=== PATIENT | male | born 1960 | race Caucasian/White ===

== ENCOUNTER 2018-09-07 16:02 | Inpatient (IN) | payer BC ==
[2018-09-07] MEDS ORDERED: SODIUM CHLORIDE 0.9% 1,000 ML IV STA (16:26)
[2018-09-07 16:52] LABS: Basophils # (A) 0.1 k/uL (0-0.2); Basophils % (A) 1 %; Eosinophils # (A) 0.2 k/uL (0-0.7); Eosinophils % (A) 2 %; HCT 47.2 % (39.0-53.0); HGB 15.4 gm/dL (13.0-17.5); Lymphocytes # (A) 1.2 k/uL (1.0-4.8); Lymphocytes % (A) 13 %; MCH 30.1 pg (25.0-35.0); MCHC 32.5 g/dL (31.0-37.0); MCV 92.5 fL (80.0-100.0); Mean Platelet Volume 7.3; Monocytes # (A) 0.9 k/uL (0-1.0); Monocytes % (A) 9 %; Neutrophils # (A) 6.7 k/uL (1.3-7.7); Neutrophils % (A) 74 %; Platelet Count 265 k/uL (150-450); RBC 5.11 m/uL (4.30-5.90); RDW 14.7 % (11.5-15.5)
[2018-09-07 17:01] LABS: Albumin 4.5 g/dL (3.5-5.0); Calcium 9.4 mg/dL (8.4-10.2); Potassium 4.2 mmol/L (3.5-5.1); Total Bilirubin 6.5 mg/dL (0.2-1.3); Total Protein 7.7 g/dL (6.3-8.2)
[2018-09-07 17:08] LABS: Partial Thromboplastin Time 24.7 sec (22.0-30.0); Prothrombin Time 9.6 sec (9.0-12.0)
[2018-09-07 17:13] LABS: Appearance,Urine Clear (Clear); Bilirubin,Urine 2+ (Negative); Blood,Urine Trace (Negative); Color,Urine Dark Brown; Glucose,Urine (UA) Trace (Negative); Ketones,Urine Negative (Negative); Leukocyte Esterase,Urine Negative (Negative); Mucus,Urine Few /hpf; Nitrite,Urine Negative (Negative); PH, Urine 5.5 (5.0-8.0); Protein,Urine 1+ (Negative); RBC,Urine 1 /hpf (0-5); Specific Gravity,Urine 1.022 (1.001-1.035); Squamous Epithelial Cell,Urine <1 /hpf (0-4); WBC,Urine 2 /hpf (0-5)
--- NOTE | 2018-09-07 17:16 | ED ---
General Adult HPI - General Chief complaint: Recheck/Abnormal Lab/Rx Stated complaint: blood in urine Time Seen by Provider: 09/07/18 16:16 Source: patient, RN notes reviewed Mode of arrival: ambulatory Limitations: no limitations - History of Present Illness Initial comments: 57-year-old male presents emergency Department chief complaint abdominal discomfort, yellowing Of his eyes and gracia-colored stools. Patient states she' s been having issues over the last couple weeks where he has not felt well he's had increased acid reflux and he was recently started on Carafate and omeprazole. Patient had lab work and which have on him to have mildly elevated liver enzymes and referred him to GI though his symptoms worsen the last 2 days when his noticed symptoms of jaundice. Patient's had some nausea no actual vomiting states his stools have been very loose and gee color. Patient states she has no history of history of liver disease denies any recent traveling for countries. No recent fevers chills patient denies any new medications other than omeprazole and Carafate. Patient denies chest pain, shortness breath, headache or dizziness. - Related Data Home Medications Medication Instructions Recorded Confirmed Metoprolol Succinate [Toprol XL] 200 mg PO DAILY 09/07/18 09/07/18 Omeprazole 40 mg PO DAILY 09/07/18 09/07/18 Ranitidine HCl [Zantac] 150 mg PO HS 09/07/18 09/07/18 Sucralfate [Carafate] 1 gm PO HS 09/07/18 09/07/18 Previous Rx's Medication Instructions Recorded Aspirin EC [Ecotrin Low Dose] 162 mg PO DAILY #30 tablet. 09/23/14 Atorvastatin [Lipitor] 40 mg PO DAILY #30 tab 09/23/14 Allergies Allergy/AdvReac Type Severity Reaction Status Date / Time codeine AdvReac Severe Dyspnea Verified 09/07/18 16:50 Review of Systems ROS Statement: Those systems with pertinent positive or pertinent negative responses have been documented in the HPI. ROS Other: All systems not noted in ROS Statement are negative. Past Medical History Past Medical History: GERD/Reflux, Hypertension Additional Past Medical History / Comment(s): GERD History of Any Multi-Drug Resistant Organisms: None Reported Past Surgical History: Coronary Bypass/CABG, Heart Catheterization, Hernia Repair, Orthopedic Surgery Additional Past Surgical History / Comment(s): carpal tunnel, RIGHT KNEE Past Anesthesia/Blood Transfusion Reactions: No Reported Reaction Past Psychological History: No Psychological Hx Reported Smoking Status: Never smoker Past Alcohol Use History: Occasional Past Drug Use History: None Reported - Past Family History Father Family Medical History: Coronary Artery Disease (CAD), Myocardial Infarction ([place] ) Additional Family Medical History / Comment(s): CABG, STARTEDD IN 60'S Mother Family Medical History: Coronary Artery Disease (CAD), Myocardial Infarction ([place] ) Additional Family Medical History / Comment(s): CABG STARTED IN 60'S General Exam Limitations: no limitations General appearance: alert, in no apparent distress Head exam: Present: atraumatic, normocephalic, normal inspection Eye exam: Present: PERRL, EOMI, scleral icterus. Absent: normal appearance, conjunctival injection, periorbital swelling ENT exam: Present: mucous membranes moist, TM's normal bilaterally, normal external ear exam. Absent: normal oropharynx (Yellow in noted under her tongue) Neck exam: Present: normal inspection, full ROM. Absent: tenderness, meningismus, lymphadenopathy Respiratory exam: Present: normal lung sounds bilaterally. Absent: respiratory distress, wheezes, rales, rhonchi, stridor Cardiovascular Exam: Present: regular rate, normal rhythm, normal heart sounds. Absent: systolic murmur, diastolic murmur, rubs, gallop, clicks GI/Abdominal exam: Present: soft, tenderness, normal bowel sounds. Absent: distended, guarding, rebound, rigid Back exam: Absent: CVA tenderness (R), CVA tenderness (L) Neurological exam: Present: alert, oriented X3, CN II-XII intact Skin exam: Present: warm, dry, intact, normal color. Absent: rash Course Vital Signs 09/07/18 16:03 Temperature 98.4 F Pulse Rate 78 Respiratory 18 Rate Blood Pressure 151/94 O2 Sat by Pulse 98 Oximetry Medical Decision Making - Lab Data Result diagrams: 09/07/18 16:39 09/07/18 16:39 Lab Results 09/07/18 09/07/18 09/07/18 Range/Units 16:39 16:39 16:39 WBC 9.0 (3.8-10.6) k/uL RBC 5.11 (4.30-5.90) m/uL Hgb 15.4 (13.0-17.5) gm/dL Hct 47.2 (39.0-53.0) % MCV 92.5 (80.0-100.0) fL MCH 30.1 (25.0-35.0) pg MCHC 32.5 (31.0-37.0) g/dL RDW 14.7 (11.5-15.5) % Plt Count 265 (150-450) k/uL Neutrophils % 74 % Lymphocytes % 13 % Monocytes % 9 % Eosinophils % 2 % Basophils % 1 % Neutrophils # 6.7 (1.3-7.7) k/uL Lymphocytes # 1.2 (1.0-4.8) k/uL Monocytes # 0.9 (0-1.0) k/uL Eosinophils # 0.2 (0-0.7) k/uL Basophils # 0.1 (0-0.2) k/uL PT 9.6 (9.0-12.0) sec INR 1.0 (<1.2) APTT 24.7 (22.0-30.0) sec Sodium 142 (137-145) mmol/L Potassium 4.2 (3.5-5.1) mmol/L Chloride 106 (98-107) mmol/L Carbon Dioxide 21 L (22-30) mmol/L Anion Gap 15 mmol/L BUN 16 (9-20) mg/dL Creatinine 1.16 (0.66-1.25) mg/dL Est GFR (CKD-EPI)AfAm 80 (>60 ml/min/1.73 sqM) Est GFR (CKD-EPI)NonAf 70 (>60 ml/min/1.73 sqM) Glucose 96 (74-99) mg/dL Calcium 9.4 (8.4-10.2) mg/dL Total Bilirubin 6.5 H (0.2-1.3) mg/dL AST 392 H (17-59) U/L ALT 540 H (21-72) U/L Alkaline Phosphatase 1096 H (38-126) U/L Total Protein 7.7 (6.3-8.2) g/dL Albumin 4.5 (3.5-5.0) g/dL Amylase 176 H (30-110) U/L Lipase 2088 H (23-300) U/L Urine Color Urine Appearance (Clear) Urine pH (5.0-8.0) Ur Specific [place] (1.001-1.035) Urine Protein (Negative) Urine Glucose (UA) (Negative) Urine Ketones (Negative) Urine Blood (Negative) Urine Nitrite (Negative) Urine Bilirubin (Negative) Urine Urobilinogen (<2.0) mg/dL Ur Leukocyte Esterase (Negative) Urine RBC (0-5) /hpf Urine WBC (0-5) /hpf Ur Squamous Epith Cells (0-4) /hpf Urine Mucus (None) /hpf 09/07/18 Range/Units 16:39 WBC (3.8-10.6) k/uL RBC (4.30-5.90) m/uL Hgb (13.0-17.5) gm/dL Hct (39.0-53.0) % MCV (80.0-100.0) fL MCH (25.0-35.0) pg MCHC (31.0-37.0) g/dL RDW (11.5-15.5) % Plt Count (150-450) k/uL Neutrophils % % Lymphocytes % % Monocytes % % Eosinophils % % Basophils % % Neutrophils # (1.3-7.7) k/uL Lymphocytes # (1.0-4.8) k/uL Monocytes # (0-1.0) k/uL Eosinophils # (0-0.7) k/uL Basophils # (0-0.2) k/uL PT (9.0-12.0) sec INR (<1.2) APTT (22.0-30.0) sec Sodium (137-145) mmol/L Potassium (3.5-5.1) mmol/L Chloride (98-107) mmol/L Carbon Dioxide (22-30) mmol/L Anion Gap mmol/L BUN (9-20) mg/dL Creatinine (0.66-1.25) mg/dL Est GFR (CKD-EPI)AfAm (>60 ml/min/1.73 sqM) Est GFR (CKD-EPI)NonAf (>60 ml/min/1.73 sqM) Glucose (74-99) mg/dL Calcium (8.4-10.2) mg/dL Total Bilirubin (0.2-1.3) mg/dL AST (17-59) U/L ALT (21-72) U/L Alkaline Phosphatase (38-126) U/L Total Protein (6.3-8.2) g/dL Albumin (3.5-5.0) g/dL Amylase (30-110) U/L Lipase (23-300) U/L Urine Color Dark Brown Urine Appearance Clear (Clear) Urine pH 5.5 (5.0-8.0) Ur Specific [place] 1.022 (1.001-1.035) Urine Protein 1+ H (Negative) Urine Glucose (UA) Trace H (Negative) Urine Ketones Negative (Negative) Urine Blood Trace H (Negative) Urine Nitrite Negative (Negative) Urine Bilirubin 2+ H (Negative) Urine Urobilinogen 2.0 (<2.0) mg/dL Ur Leukocyte Esterase Negative (Negative) Urine RBC 1 (0-5) /hpf Urine WBC 2 (0-5) /hpf Ur Squamous Epith Cells <1 (0-4) /hpf Urine Mucus Few H (None) /hpf Disposition Clinical Impression: Biliary dyskinesia, Jaundice, Pancreatitis, Acute hepatitis, Acalculous cholecystitis Disposition: ADMITTED IP TO THIS HOSP Condition: Fair Referrals: Fredi Romo MD [Primary Care Provider] - 1-2 days
--- NOTE | 2018-09-07 17:54 | US ---
EXAMINATION TYPE: US abdomen limited DATE OF EXAM: 09/07/2018 COMPARISON: NONE CLINICAL HISTORY: Pain. EXAM MEASUREMENTS: Liver Length: 15.7 cm Gallbladder Wall: 0.3 cm CBD: 1.3 cm Right Kidney: 10.7 x 6.3 x 5.7 cm Pancreas: Obscured by bowel gas Liver: Increased attenuation Gallbladder: No stones seen Evidence for sonographic Gee's sign: no CBD: enlarged Right Kidney: 2 cysts; upper pole, 2.0 x 2.2 x 1.9 cm and lower pole. 2.0 x 1.5 x 2.4 cm: no hydronephrosis IMPRESSION: There is borderline dilated gallbladder. No gallstones. Common bile duct is large and sug gestive of gallbladder dysfunction.
[2018-09-07] MEDS ORDERED: HYDROmorphone 1 MG/ML 1 ML SYRINGE IVP PRN (18:17)
[2018-09-07] MEDS ORDERED: NALOXONE 0.4 MG/ML 1 ML VIAL IV PRN (18:17)
[2018-09-07] MEDS ORDERED: ONDANSETRON 4 MG/2 ML VIAL IVP PRN (18:17)
[2018-09-07] MEDS: SODIUM CHLORIDE 0.9% 1,000 ML IV SCH (19:30)
[2018-09-07] MEDS: MELATONIN 3 MG TABLET PO SCH (22:02)
--- NOTE | 2018-09-07 22:58 | HP ---
HISTORY AND PHYSICAL DATE OF ADMISSION: 09/07/2018 DATE OF SERVICE: 09/07/2018. PRESENTING COMPLAINT: Abdominal discomfort. HISTORY OF PRESENTING COMPLAINT: A very pleasant 57-year-old patient who follows with Dr. Fredi Romo. Chronic stable medical conditions include GERD, hypertension, coronary bypass in 2013. The patient is rather active and was doing well. About 2 weeks ago the patient noted that he started getting abdominal discomfort after eating and patient noted that he started getting runny stools. The last 2 weeks, not really did have a proper meal and noted a lot of reflux symptoms. did note him seemed to be jaundiced earlier. No fever, chills, tired, run down. Hence patient was presented to the ER. In the ER, the patient was found to have acute pancreatitis and elevated LFTs and alkaline phosphatase and bilirubin with evidence of dilated common bile duct. Admitted for the same. REVIEW OF SYSTEMS: CONSTITUTIONAL: Tired. HEENT: Slight jaundice. RESPIRATORY: None. CARDIOVASCULAR: None. GASTROINTESTINAL: As above. GENITOURINARY: None. MUSCULOSKELETAL: None. DERMATOLOGICAL: None. HEMATOLOGICAL: None. LYMPHATICS: None. NEUROLOGICAL: None. PAST MEDICAL HISTORY: GERD, hypertension, coronary artery disease with bypass. PAST SURGICAL HISTORY: Coronary bypass, hernia repair, carpal tunnel, right knee surgery. SOCIAL HISTORY: No smoking. Alcohol occasionally. . The patient is a mobile crane operator, currently between jobs. FAMILY HISTORY: Coronary artery disease. HOME MEDICATIONS: 1. Omeprazole 40 mg a day. 2. Toprol-XL 200 mg a day. 3. Carafate 1 g p.o. q.h.s. 4. Zantac 150 mg at bedtime. 5. Lipitor 40 mg p.o. daily. 6. Aspirin 162 mg p.o. daily. ALLERGIES: CODEINE. PHYSICAL EXAMINATION: VITAL SIGNS: Vital signs on presentation, temperature 98.4, pulse 70, respiratory rate 18, blood pressure 115/94. Pulse ox 98% on room air. GENERAL APPEARANCE: Average build, sitting up, awake. Eyes pupils equal. Conjunctivae slight icterus. HEENT external appearance of nose and ears normal. Oral cavity normal. NECK: JVD not raised. Mass not palpable. RESPIRATORY: Effort normal. LUNGS are clear. CARDIOVASCULAR: 1st and 2nd sounds normal. No edema. ABDOMEN: the patient has got tenderness in the right upper abdomen. No guarding or rigidity. Liver and spleen not palpable. LYMPHATICS: No lymph nodes palpable in the neck and axillae. PSYCHIATRY: Alert and oriented x3. Mood and affect normal. NEUROLOGICAL: Pupils equal. Cranial nerves grossly intact. Power and sensation grossly intact. INVESTIGATIONS: White count 9, hemoglobin 15.4, potassium 4.2, BUN creatinine is normal. Bilirubin increased at 6.5, AST 392, ALT 540, alkaline phosphate is 1096, amylase 176, lipase 2088. Abdominal ultrasound borderline dilated gallbladder. Common bile duct is large. ASSESSMENT: 1. This is a patient with 2 weeks of increasing abdominal epigastric discomfort, now presented with a dilated common bile duct and acute pancreatitis, most likely gallstone induced. 2. Strongly suspect gallstones passes into the common bile duct. 3. Essential hypertension. 4. Gastroesophageal reflux disease. 5. Coronary artery disease with prior history of bypass. PLAN: Patient to be made n.p.o. except for his oral medications. Both GI and General surgery been consulted with a view to ERCP especially when the pancreatitis is settled down a bit. Care was discussed with the patient. Questions were answered. Copy to Dr. Romo. MMODL / IJN: [id number] /
[2018-09-07] MEDS: ENOXAPARIN 40 MG/0.4 ML SYRINGE SQ SCH (23:25)
[2018-09-08 00:30] LABS: Amylase 210 U/L (30-110)
[2018-09-08 00:40] LABS: Lipase 2186 U/L (23-300)
[2018-09-08] MEDS: SODIUM CHLORIDE 0.9% 1,000 ML IV SCH ×3 (04:12→23:36)
[2018-09-08] MEDS: METOPROLOL SUCCINATE (ER) 100 MG TAB.ER.24H PO SCH (07:49)
[2018-09-08] MEDS: PANTOPRAZOLE 40 MG TABLET PO SCH (07:49)
[2018-09-08 09:04] LABS: Basophils % (A) 1 %; Eosinophils # (A) 0.2 k/uL (0-0.7); Eosinophils % (A) 3 %; HCT 43.5 % (39.0-53.0); HGB 14.1 gm/dL (13.0-17.5); Lymphocytes % (A) 19 %; MCH 30.1 pg (25.0-35.0); MCHC 32.4 g/dL (31.0-37.0); MCV 92.9 fL (80.0-100.0); Mean Platelet Volume 7.8; Monocytes # (A) 0.5 k/uL (0-1.0); Monocytes % (A) 9 %; Neutrophils # (A) 3.5 k/uL (1.3-7.7); Neutrophils % (A) 67 %; Platelet Count 238 k/uL (150-450); RBC 4.68 m/uL (4.30-5.90); RDW 14.7 % (11.5-15.5); WBC 5.2 k/uL (3.8-10.6)
[2018-09-08 09:17] LABS: ALT 428 U/L (21-72); AST 292 U/L (17-59); Albumin 3.6 g/dL (3.5-5.0); Alkaline Phosphatase 951 U/L (38-126); Anion Gap 12 mmol/L; Blood Urea Nitrogen 14 mg/dL (9-20); Carbon Dioxide 17 mmol/L (22-30); Chloride 111 mmol/L (98-107); Glucose 84 mg/dL (74-99); Potassium 4.1 mmol/L (3.5-5.1); Sodium 140 mmol/L (137-145); Total Bilirubin 6.7 mg/dL (0.2-1.3); Total Protein 6.5 g/dL (6.3-8.2)
--- NOTE | 2018-09-08 12:37 | P.GSCN ---
History of Present Illness Consult date: 09/08/18 Reason for Consult: Biliary obstruction History of present illness: Patient presents to the hospital with complaints of mild epigastric and upper back pain. This was associated with yellow colored eyes and dark urine. He has had diarrhea that is grayish in color. 10 pound weight loss in the last 1 week because of a diminished appetite. Ultrasound shows a distended gallbladder and a distended bile duct with no gallstones. Liver enzymes elevated as long as elevation and the amylase and lipase level. GI consult pending. Review of Systems The patient denies any acute changes in vision or hearing, no dysphagia or odynophagia, no chest pain or shortness of breath, no dysuria or hematuria, no headache, no runny nose, no rectal bleeding or melena, no unexplained weight loss Past Medical History Past Medical History: GERD/Reflux, Hypertension Additional Past Medical History / Comment(s): GERD History of Any Multi-Drug Resistant Organisms: None Reported Past Surgical History: Coronary Bypass/CABG, Heart Catheterization, Hernia Repair, Orthopedic Surgery Additional Past Surgical History / Comment(s): carpal tunnel, RIGHT KNEE Past Anesthesia/Blood Transfusion Reactions: No Reported Reaction Past Psychological History: No Psychological Hx Reported Smoking Status: Never smoker Past Alcohol Use History: Occasional Past Drug Use History: None Reported - Past Family History Father Family Medical History: Coronary Artery Disease (CAD), Myocardial Infarction ([place] ) Additional Family Medical History / Comment(s): CABG, STARTEDD IN 60'S Mother Family Medical History: Coronary Artery Disease (CAD), Myocardial Infarction ([place] ) Additional Family Medical History / Comment(s): CABG STARTED IN 60'S Medications and Allergies Home Medications Medication Instructions Recorded Confirmed Type Aspirin EC [Ecotrin Low Dose] 162 mg PO DAILY #30 tablet.dr 09/23/14 09/07/18 Rx Atorvastatin [Lipitor] 40 mg PO DAILY #30 tab 09/23/14 09/07/18 Rx Metoprolol Succinate [Toprol XL] 200 mg PO DAILY 09/07/18 09/07/18 History Omeprazole 40 mg PO DAILY 09/07/18 09/07/18 History Ranitidine HCl [Zantac] 150 mg PO HS 09/07/18 09/07/18 History Sucralfate [Carafate] 1 gm PO HS 09/07/18 09/07/18 History Allergies Allergy/AdvReac Type Severity Reaction Status Date / Time codeine AdvReac Severe Dyspnea Verified 09/07/18 16:50 Surgical - Exam Vital Signs Temp Pulse Resp BP Pulse Ox 98.4 F 78 18 151/94 98 09/07/18 16:03 09/07/18 16:03 09/07/18 16:03 09/07/18 16:03 09/07/18 16:03 Physical exam: General: Well-developed, well-nourished HEENT: Normocephalic, sclerae icteric Abdomen: Mild right upper quadrant tenderness, nondistended Extremities: No edema Neuro: Alert and oriented Results - Labs 09/08/18 08:14 09/08/18 08:14 Abnormal Lab Results - Last 24 Hours (Table) 09/07/18 09/07/18 09/07/18 Range/Units 16:39 16:39 23:26 Chloride (98-107) mmol/L Carbon Dioxide 21 L (22-30) mmol/L Total Bilirubin 6.5 H (0.2-1.3) mg/dL AST 392 H (17-59) U/L ALT 540 H (21-72) U/L Alkaline Phosphatase 1096 H (38-126) U/L Amylase 176 H 210 H (30-110) U/L Lipase 2088 H 2186 H (23-300) U/L Urine Protein 1+ H (Negative) Urine Glucose (UA) Trace H (Negative) Urine Blood Trace H (Negative) Urine Bilirubin 2+ H (Negative) Urine Mucus Few H (None) /hpf 09/08/18 Range/Units 08:14 Chloride 111 H (98-107) mmol/L Carbon Dioxide 17 L (22-30) mmol/L Total Bilirubin 6.7 H (0.2-1.3) mg/dL AST 292 H (17-59) U/L ALT 428 H (21-72) U/L Alkaline Phosphatase 951 H (38-126) U/L Amylase (30-110) U/L Lipase (23-300) U/L Urine Protein (Negative) Urine Glucose (UA) (Negative) Urine Blood (Negative) Urine Bilirubin (Negative) Urine Mucus (None) /hpf Diabetes panel 09/07/18 09/08/18 Range/Units 16:39 08:14 Sodium 142 140 (137-145) mmol/L Potassium 4.2 4.1 (3.5-5.1) mmol/L Chloride 106 111 H (98-107) mmol/L Carbon Dioxide 21 L 17 L (22-30) mmol/L BUN 16 14 (9-20) mg/dL Creatinine 1.16 1.03 (0.66-1.25) mg/dL Glucose 96 84 (74-99) mg/dL Calcium 9.4 9.0 (8.4-10.2) mg/dL AST 392 H 292 H (17-59) U/L ALT 540 H 428 H (21-72) U/L Alkaline Phosphatase 1096 H 951 H (38-126) U/L Total Protein 7.7 6.5 (6.3-8.2) g/dL Albumin 4.5 3.6 (3.5-5.0) g/dL Calcium panel 09/07/18 09/08/18 Range/Units 16:39 08:14 Calcium 9.4 9.0 (8.4-10.2) mg/dL Albumin 4.5 3.6 (3.5-5.0) g/dL Pituitary panel 09/07/18 09/08/18 Range/Units 16:39 08:14 Sodium 142 140 (137-145) mmol/L Potassium 4.2 4.1 (3.5-5.1) mmol/L Chloride 106 111 H (98-107) mmol/L Carbon Dioxide 21 L 17 L (22-30) mmol/L BUN 16 14 (9-20) mg/dL Creatinine 1.16 1.03 (0.66-1.25) mg/dL Glucose 96 84 (74-99) mg/dL Calcium 9.4 9.0 (8.4-10.2) mg/dL Adrenal panel 09/07/18 09/08/18 Range/Units 16:39 08:14 Sodium 142 140 (137-145) mmol/L Potassium 4.2 4.1 (3.5-5.1) mmol/L Chloride 106 111 H (98-107) mmol/L Carbon Dioxide 21 L 17 L (22-30) mmol/L BUN 16 14 (9-20) mg/dL Creatinine 1.16 1.03 (0.66-1.25) mg/dL Glucose 96 84 (74-99) mg/dL Calcium 9.4 9.0 (8.4-10.2) mg/dL Total Bilirubin 6.5 H 6.7 H (0.2-1.3) mg/dL AST 392 H 292 H (17-59) U/L ALT 540 H 428 H (21-72) U/L Alkaline Phosphatase 1096 H 951 H (38-126) U/L Total Protein 7.7 6.5 (6.3-8.2) g/dL Albumin 4.5 3.6 (3.5-5.0) g/dL Assessment and Plan (1) Jaundice Narrative/Plan: 57-year-old male with findings of obstructive jaundice. No gallstones seen on recent ultrasound. Will order CT abdomen and pelvis to rule out pathology at the pancreatic head. Await GI evaluation. We'll follow with you. Current Visit: Yes Status: Acute Code(s): R17 - UNSPECIFIED JAUNDICE SNOMED Code(s): 26392811
[2018-09-08] MEDS: IOPAMIDOL-300 CONTRAST 30 ML VIAL (ORAL USE) PO PRN ×2 (12:59→14:11)
[2018-09-08 13:29] VITALS: BMI 26.9
--- NOTE | 2018-09-08 17:02 | CT ---
EXAMINATION TYPE: CT abdomen pelvis w con DATE OF EXAM: 09/08/2018 COMPARISON: Ultrasound abdomen 09/07/2018 HISTORY: Patient complains of nausea, vomiting, diarrhea, epigastric pain, and jaundice. CT DLP: 945.3 mGycm Automated exposure control for dose reduction was used. TECHNIQUE: Helical acquisition of images from the lung bases through the pelvis have been completed. CONTRAST: Performed with Oral Contrast and with IV Contrast, patient injected with 100 mL of Isovue 300. FINDINGS: LUNG BASES: No significant abnormality is appreciated. AORTA: No significant abnormality is appreciated. LIVER/GB: Intrahepatic biliary ductal dilatation present centrally. Liver shows low attenuation possi kate due to hepatic steatosis. Gallbladder is somewhat distended, there may be some luminal stones PANCREAS: Low dense mass is present at the level of the head of the pancreas causing some local mass effect on the duodenum, the mass measures approximately 5.6 cm in cephalad to caudal dimension by 3.6 cm in transverse dimension by 3.2 cm in anterior to posterior dimension and there is obliteration of the fat plane between the pancreas and small bowel, mass effect is present on the common bile duct d istally, bile duct is dilated centrally. SPLEEN: No significant abnormality is seen. ADRENALS: No significant abnormality is seen. KIDNEYS: Multiple cystic foci associated with the kidneys. REPRODUCTIVE ORGANS: No significant abnormality is seen BOWEL: No significant abnormality is seen. FREE AIR: No Free Air visible. ASCITES: None visible. PELVIC ADENOPATHY: None visualized. RETROPERITONEAL ADENOPATHY: No Retroperitoneal Adenopathy visible. URINARY BLADDER: No significant abnormality is seen. OSSEOUS STRUCTURES: No significant abnormality is seen. IMPRESSION: PANCREATIC HEAD MASS MAY BE INDICATIVE OF PANCREATIC CARCINOMA
--- NOTE | 2018-09-08 17:11 | PN ---
PROGRESS NOTE DATE OF SERVICE: 09/08/18. PRESENTING COMPLAINT: Abdominal discomfort. INTERVAL HISTORY: This patient presented with gallstone pancreatitis. Still having some abdominal discomfort. Seen by Dr. Montano earlier today. I did order a CT scan of the abdomen and pelvis. The patient's is present. Awaiting input from GI. No nausea. No fever. No chills. REVIEW OF SYSTEMS: Done for constitutional, cardiovascular, GI, pulmonary; relevant findings as above. CURRENT MEDICATIONS: Reviewed that include IV fluids, saline. PHYSICAL EXAMINATION: Temperature 98.4, pulse 69, respiration 17, blood pressure 179/83, pulse ox 98% on room air. GENERAL APPEARANCE: Sitting up, comfortable. EYES: Pupils equal. Conjunctivae icterus. HEENT: External appearance of nose and ears normal. Oral cavity normal. NECK: JVD not raised. Mass not palpable. RESPIRATORY: Effort, lungs are clear. CARDIOVASCULAR: 1st and 2nd sounds, no edema. ABDOMEN: Right upper quadrant tenderness. No guarding or rigidity. Liver and spleen not palpable. PSYCHIATRY: Alert and oriented x3. Mood and affect normal. INVESTIGATIONS: White count 5.2, hemoglobin 14.1, potassium 4.1, total bilirubin 6.7, AST 292, ALT 428, alkaline phosphatase 951, amylase 210, lipase 2186. ASSESSMENT: 1. Acute gallstone pancreatitis. 2. Essential hypertension. 3. Gastroesophageal reflux disease. 4. Coronary artery disease, prior history of bypass. PLAN: Await input from GI. Probably need an ERCP. Will need the pancreatitis to come down a bit more. Repeat labs in the morning. Care was discussed with the patient and at the bedside. Follow. MMODL / IJN: [id number] /
[2018-09-08] MEDS: MELATONIN 3 MG TABLET PO SCH (20:01)
[2018-09-08] MEDS: ENOXAPARIN 40 MG/0.4 ML SYRINGE SQ SCH (20:01)
--- NOTE | 2018-09-09 01:02 | P.CONS ---
History of Present Illness - Reason for Consult Consult date: 09/08/18 Pancreatitis, jaundice Requesting physician: Rustam Nolasco - Chief Complaint Abdominal pain, jaundice - History of Present Illness The patient is a very pleasant 57-year-old male with a medical history significant for GERD treated with as needed ranitidine, hypertension and a remote history of peptic ulcer disease who presented with a constellation of symptoms including abdominal pain, jaundice, weight loss and change in bowel habits. Per the patient he has been having abdominal pain for the past few weeks. He describes the pain as in the epigastric region and radiating into his back. He reports that this was associated with yellowing of his eyes and darkening of his stool. In addition 10 days ago he began to have multiple episodes of loose stool daily. Initially he described the stool was normal in color however it began to light and became sisi-colored by the time prior to presentation. The patient also reports an associated 10 pound weight loss in the recent few weeks. The patient was prompted to come to the hospital after being away on a training trip for his job, after which he returned home and it was pointed out by his that his skin and eyes were extremely yellow and that this needed to be evaluated in the hospital setting. On presentation to the hospital the patient had elevation in his liver enzymes with a total bilirubin of 6.5, alkaline phosphatase 1096, AST 392 and ALT 540. Lipase was elevated on presentation at 2088 and amylase was 176. Initially patient had evaluation with ultrasound which showed a CBD of 1.3 cm with increased liver attenuation and no gallbladder stones seen. Review of Systems Constitutional: 10 pound weight loss Eyes: Denies any change in vision, pain denies, yellowing otherwise Nose: Denies any congestion, rhinorrhea Ears: Denies any change in hearing, new onset tinnitus Lungs: Denies any wheezing, shortness of breath, cough, or hemoptysis Cardiac: Denies any pain in chest, shortness of breath, lower extremity swelling Abdomen: As per history of present illness Skin: Denies any new rashes or pruritus, but reports yellowing of skin Urine: Denies any dysuria or hematuria, darkening of urine Neuro: Denies any change in mental status, new focal deficits Past Medical History Past Medical History: GERD/Reflux, Hypertension Additional Past Medical History / Comment(s): GERD History of Any Multi-Drug Resistant Organisms: None Reported Past Surgical History: Coronary Bypass/CABG, Heart Catheterization, Hernia Repair, Orthopedic Surgery Additional Past Surgical History / Comment(s): carpal tunnel, RIGHT KNEE Past Anesthesia/Blood Transfusion Reactions: No Reported Reaction Past Psychological History: No Psychological Hx Reported Smoking Status: Never smoker Past Alcohol Use History: Occasional Past Drug Use History: None Reported - Past Family History Father Family Medical History: Coronary Artery Disease (CAD), Myocardial Infarction ([place] ) Additional Family Medical History / Comment(s): CABG, STARTEDD IN 60'S Mother Family Medical History: Coronary Artery Disease (CAD), Myocardial Infarction ([place] ) Additional Family Medical History / Comment(s): CABG STARTED IN 60'S Medications and Allergies Home Medications Medication Instructions Recorded Confirmed Type Aspirin EC [Ecotrin Low Dose] 162 mg PO DAILY #30 tablet.dr 09/23/14 09/07/18 Rx Atorvastatin [Lipitor] 40 mg PO DAILY #30 tab 09/23/14 09/07/18 Rx Metoprolol Succinate [Toprol XL] 200 mg PO DAILY 09/07/18 09/07/18 History Omeprazole 40 mg PO DAILY 09/07/18 09/07/18 History Ranitidine HCl [Zantac] 150 mg PO HS 09/07/18 09/07/18 History Sucralfate [Carafate] 1 gm PO HS 09/07/18 09/07/18 History Allergies Allergy/AdvReac Type Severity Reaction Status Date / Time codeine AdvReac Severe Dyspnea Verified 09/07/18 16:50 Physical Exam Vitals: Vital Signs Temp Pulse Pulse Resp BP BP Pulse Ox 09/08/18 23:00 98.1 F 78 20 152/85 96 09/08/18 15:00 98.4 F 69 17 139/83 98 09/08/18 07:00 97.8 F 77 18 125/75 97 Intake and Output 09/08/18 09/08/18 09/09/18 14:59 22:59 05:59 Other: # Voids 2 # Bowel Movements 0 Weight 85 kg 85 kg Constitutional: Lying in bed in no apparent distress Head: normocephalic/atraumatic Eyes: Icterus, no injection Mouth: Moist mucous membranes Nose: No discharge noted Neck: Trachea midline Lungs: Normal air entry in all lung acevedo, no wheezing appreciated Abdomen: Soft, nontender, nondistended, normal bowel sounds. No guarding or rigidity Skin: No rashes, significant jaundice noted Neuro: Awake alert and oriented 3, no focal deficits Results CBC & Chem 7: 09/08/18 08:14 09/08/18 08:14 Labs: Abnormal Lab Results - Last 24 Hours (Table) 09/08/18 Range/Units 08:14 Chloride 111 H (98-107) mmol/L Carbon Dioxide 17 L (22-30) mmol/L Total Bilirubin 6.7 H (0.2-1.3) mg/dL AST 292 H (17-59) U/L ALT 428 H (21-72) U/L Alkaline Phosphatase 951 H (38-126) U/L CT scan - abdomen: report reviewed (After patient was seen report from CT scan became available, this commented on intrahepatic biliary dilation with a distended gallbladder and a 5.5 x 3.6 x 3.2 cm pancreatic head lesion suggestive of a malignancy) Assessment and Plan (1) Pancreatitis Narrative/Plan: Patient presenting with constellation of symptoms including weight loss, jaundice and abdominal pain. Liver enzymes suggestive of pancreatitis. After the patient was seen and evaluated report from his CT scan became available and was suggestive of a pancreatic head mass. Concern is for malignancy given the patient's presentation, however Will order autoimmune pancreatitis markers. Current Visit: Yes Status: Acute Code(s): K85.90 - ACUTE PANCREATITIS WITHOUT NECROSIS OR INFECTION, UNSP SNOMED Code(s): 98214823 (2) Elevated liver enzymes Narrative/Plan: Likely secondary to above, concern is for biliary obstruction in the setting of a pancreatic head mass, however will order autoimmune markers to rule out autoimmune pancreatitis. Current Visit: Yes Status: Acute Code(s): R74.8 - ABNORMAL LEVELS OF OTHER SERUM ENZYMES SNOMED Code(s): 194441951 (3) Jaundice Narrative/Plan: Secondary to above. Current Visit: Yes Status: Acute Code(s): R17 - UNSPECIFIED JAUNDICE SNOMED Code(s): 67576089 Plan: Supportive care Fluid hydration Nothing by mouth, advance as tolerated Autoimmune markers and markers for malignancy ordered Patient will eventually need endoscopic ultrasound evaluation of the pancreatic mass at a tertiary referral center, in addition we'll discuss timing of possible ERCP with stent placement and patient preferences for having the procedure done here or in conjunction with the endoscopic ultrasound Monitor liver enzymes We'll continue to follow, thank you for allowing us to participate in the care of this patient
[2018-09-09] MEDS: METOPROLOL SUCCINATE (ER) 100 MG TAB.ER.24H PO SCH (07:44)
[2018-09-09] MEDS: PANTOPRAZOLE 40 MG TABLET PO SCH (07:44)
[2018-09-09 07:58] VITALS: RESP 16
[2018-09-09 08:49] LABS: Basophils % (A) 0 %; Eosinophils # (A) 0.1 k/uL (0-0.7); Eosinophils % (A) 2 %; HCT 46.4 % (39.0-53.0); HGB 14.5 gm/dL (13.0-17.5); Lymphocytes # (A) 0.9 k/uL (1.0-4.8); Lymphocytes % (A) 16 %; MCHC 31.4 g/dL (31.0-37.0); MCV 95.7 fL (80.0-100.0); Mean Platelet Volume 7.4; Monocytes # (A) 0.5 k/uL (0-1.0); Monocytes % (A) 8 %; Neutrophils # (A) 4.1 k/uL (1.3-7.7); Neutrophils % (A) 71 %; Platelet Count 308 k/uL (150-450); RBC 4.85 m/uL (4.30-5.90); RDW 14.8 % (11.5-15.5); WBC 5.7 k/uL (3.8-10.6)
[2018-09-09] MEDS: SODIUM CHLORIDE 0.9% 1,000 ML IV SCH (08:59)
[2018-09-09 09:08] LABS: Calcium 9.3 mg/dL (8.4-10.2); Potassium 4.3 mmol/L (3.5-5.1); Total Bilirubin 8.5 mg/dL (0.2-1.3); Total Protein 7.1 g/dL (6.3-8.2)
--- NOTE | 2018-09-09 14:27 | P.PN ---
Subjective Progress Note Date: 09/09/18 Principal diagnosis: Obstructive jaundice Patient doing fairly well today. He states his bowel movement this morning had more color. He is hungry. Bilirubin however has increased further. His CAT scan a unfortunately reveal a suspected mass at the head of the pancreas. Objective - Vital Signs Vital signs: Vital Signs Temp 97.0 F L 09/09/18 07:00 Pulse 81 09/09/18 07:00 Resp 16 09/09/18 07:00 BP 138/85 09/09/18 07:00 Pulse Ox 95 09/09/18 07:00 Intake & Output 09/08/18 09/09/18 09/09/18 19:59 06:59 18:59 Weight Other: # Voids # Bowel Movements - Exam Abdomen: Soft, mild right upper quadrant tenderness - Labs CBC & Chem 7: 09/09/18 07:54 09/09/18 07:54 Labs: Abnormal Lab Results - Last 24 Hours (Table) 09/09/18 09/09/18 Range/Units 07:54 07:54 Lymphocytes # 0.9 L (1.0-4.8) k/uL Carbon Dioxide 18 L (22-30) mmol/L Glucose 69 L (74-99) mg/dL Total Bilirubin 8.5 H (0.2-1.3) mg/dL AST 256 H (17-59) U/L ALT 412 H (21-72) U/L Alkaline Phosphatase 1084 H (38-126) U/L Lipase 746 H (23-300) U/L Assessment and Plan (1) Jaundice Narrative/Plan: CAT scan findings discussed in detail with the patient and his family. Decision regarding ERCP with stent placement versus inpatient transfer per the primary service and GI. Will follow. Status: Acute Code(s): R17 - UNSPECIFIED JAUNDICE SNOMED Code(s): 41078560
[2018-09-09 14:51] VITALS: BP 155/84; PULSE 75; TEMP 98.2
--- NOTE | 2018-09-09 19:20 | DS ---
DISCHARGE SUMMARY DATE OF ADMISSION: 09/07/18. DATE OF TRANSFER: 09/09/18 FINAL DIAGNOSES: 1. Acute obstructive pancreatitis. 2. Essential hypertension. 3. Acute obstructive hepatitis. 4. Gastroesophageal reflux disease. 5. Coronary artery disease with prior history of bypass. 6. Pancreatic head mass. HOSPITAL COURSE: This is a patient who presented with abdominal discomfort going on for a few days, found to be having pancreatitis. Initially, amylase and lipase were 176 and 2088. Did drop down to 96 and 746 today. AST and ALT are 256 and 412. Alkaline phosphatase is 1084 and total bilirubin is 8.5. Initially this was felt to be gallstone pancreatitis. CT scan of the abdomen did reveal a 5.[address] Back did speak to the patient and because endoscopy ultrasound could not be done here, patient will be transferred to [facility]. I spoke to the accepting admissions office noted at [facility] and patient accepted to [facility] for higher level of care. On examination, temperature 98.2, pulse 55, respiration 16, blood pressure 155/84, pulse ox 96 percent on room air. ABDOMEN: Upper abdominal tenderness. DISPOSITION: [facility] Medical Service [facility] [address] [place] [address]. CONSULTANTS: 1. Dr. Morteza Montano from General Surgery. 2. Dr. Back from GI. The patient's current medications are: 1. Lovenox 40 mg subcu daily. 2. Dilaudid p.r.n. 3. Melatonin 3 mg p.o. q.h.s. 4. Toprol-XL 200 mg a day. 5. Narcan. 6. Zofran 4 mg IV push q.8h p.r.n. 7. Protonix 40 mg a day. 8. IV fluids 100 mL an hour. Discussion and discharge planning more than 35 minutes. MMODL / IJN: [id number] /
[2018-09-10 13:30] LABS: IgG Subclass 3 44.2 mg/dL (11.0-85.0); IgG Subclass 4 91.5 mg/dL (3.0-175.0)
[2018-09-10 14:18] LABS: Alpha Fetoprotein, Tumor Mkr <2.5 ng/mL (0.0-7.9)
== END 2018-09-09 19:20 | disposition short-term general hospital (02) | DRG 440 ==
LOC: EC 16:02 → 4MS4W 18:04
PROVIDERS: ADMIT Hospitalist; ATTEND Hospitalist
DX: K85.10 Biliary acute pancreatitis without necrosis or infection (principal); I10 Essential (primary) hypertension; I25.10 Atherosclerotic heart disease of native coronary artery without angina pectoris; K21.9 Gastro-esophageal reflux disease without esophagitis; K80.50 Calculus of bile duct without cholangitis or cholecystitis without obstruction; Z79.82 Long term (current) use of aspirin; Z79.899 Other long term (current) drug therapy; Z82.49 Family history of ischemic heart disease and other diseases of the circulatory system; Z87.11 Personal history of peptic ulcer disease; Z95.1 Presence of aortocoronary bypass graft; R94.5 Abnormal results of liver function studies; K86.9 Disease of pancreas, unspecified
CPT/HCPCS: 36415; 74177; 76705; 80053; 81001; 82105; 82150; 82378; 82787; 83690; 85025; 85610; 85730; 86301; 87324